=== PATIENT | male | born 1960 | race African-American/Black ===

== ENCOUNTER 2020-10-23 13:37 | Emergency (ER) | payer OTHER ==
[~2020-10-23] VITALS: Ht 175.3 cm; Wt 67.0 kg
[2020-10-23] MEDS: TETANUS, DIPHTHERIA, PERTUSSIS VAC/PF 0.5ML (>7YR OLD) IM ONE (14:11)
[2020-10-23] MEDS: ACETAMINOPHEN WITH CODEINE 300/30MG TABLET PO ONE (14:11)
[2020-10-23] MEDS: BACITRACIN ZINC OINT UDPKT TOP ONE (14:12)
[2020-10-23] MEDS ORDERED: BO1 TP (14:38)
[2020-10-23 14:48] VITALS: BP 150/68
== END 2020-10-23 14:47 | disposition home or self-care (01) ==
LOC: ER 13:56
DX: S61.512A Laceration without foreign body of left wrist, initial encounter (principal); F17.200 Nicotine dependence, unspecified, uncomplicated; X58.XXXA Exposure to other specified factors, initial encounter; Y93.89 Activity, other specified; Y92.89 Other specified places as the place of occurrence of the external cause; Y99.8 Other external cause status
CPT/HCPCS: 12002; 90471; 90715; 99283; A4217; Z7610